=== PATIENT | male | born 1995 | race Caucasian/White ===

== ENCOUNTER 2020-03-10 20:06 | Emergency (ER) | payer OTHER ==
[2020-03-10 20:16] VITALS: BP 129/86; PULSE 77; TEMP 97.7; BMI 28.5
[2020-03-10] MEDS ORDERED: ACETAMINOPHEN 500 MG TABLET (FP) PO ONE (20:50)
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
[2020-03-10] MEDS ORDERED: ACETAMINOPHEN 325 MG TABLET (FP) ONE (21:08)
--- OUTSIDE RECORDS SUMMARY | 2020-03-10 21:32 | XMS ---
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 [facility] [Mass/volume] in styleCode="Bold"> Giovanny hs Serum or Plasma Bilirubin Total Medical </content>0.8 Center MG/DL<content styleCode="Italic s"> (0.2-1.3 MG/DL)</content> Alanine 7-50 <content [facility] aminotransferase styleCode="Bold"> Giovanny hs [Enzymatic Alanine Medical activity/volume] Aminotransferase Center in Serum or Plasma (ALT) </content>23 IU/L<content styleCode="Italic s"> (7-50 IU/L)</content> Alkaline 38-126 <content [facility] phosphatase styleCode="Bold"> Jermaine [Enzymatic Alkaline Medical activity/volume] Phosphatase (ALP) Cente r in Serum or Plasma </content>73 IU/L<content styleCode="Italic s"> (38-126 IU/L)</content> Albumin 3.5-5.0 Below low <content [facility] [Mass/volume] in normal styleCode="Bold"> Giovanny hs Serum or Plasma Albumin Medical </content>3.3 Center G/DL L<content styleCode="Italic s"> (3.5-5.0 G/DL)</content> ID Date Data Source HematologyRou.[id number] 11/13/2019 05:45:00 AM EDT [facility] 0400 Name Value Range Interpretation Description Data Sup porting Code Source(s) Document(s ) Erythrocytes 4.4-5.9 <content [facility] [#/volume] in styleCode="Bold Jermaine Blood by ">Red Blood Medical Automated count Cell Count Center </content>4.67 MCUMM<content styleCode="Ital ics"> (4.4-5.9 MCUMM)</content > Leukocytes 4.4-11.0 <content [facility] [#/volume] in styleCode="Bold Jermaine Blood by ">White Blood Medical Automated count Cell Count Center </content>9.05 KCUMM<content styleCode="Ital ics"> (4.4-11.0 KCUMM)</content > Hematocrit 41.0-53. <content [facility] [Volume 0 styleCode="Bold Jermaine Fraction] of ">Hematocrit Medical Blood by </content>42.1 Center Automated count %<content styleCode="Ital ics"> (41.0-53.0 %)</content> Erythrocyte mean 80.0-100 <content [facility] corpuscular .0 styleCode="Bold Jermaine volume [Entitic ">Mean Medical volume] by Corpuscular Center Automated count Volume </content>90.1 FL<content styleCode="Ital ics"> (80.0-100.0 FL)</content> Hemoglobin 13.5-17. <content [facility] [Mass/volume] in 5 styleCode="Bold Jermaine Blood ">Hemoglobin Medical </content>13.9 Center G/DL<content styleCode="Ital ics"> (13.5-17.5 G/DL)</content> Erythrocyte mean 26.0-34. <content [facility] corpuscular 0 styleCode="Bold Jermaine hemoglobin ">Mean Medical [Entitic mass] Corposcular Center by Automated Hemoglobin count </content>29.8 PG<content styleCode="Ital ics"> (26.0-34.0 PG)</content> Erythrocyte mean 32.0-37. <content [facility] corpuscular 0 styleCode="Bold Jermaine hemoglobin ">Mean Corpus. Medical concentration Hgb Center [Mass/volume] by Concentration Automated count (MCHC) </content>33.0 G/DL<content styleCode="Ital ics"> (32.0-37.0 G/DL)</content> Erythrocyte 11.5-14. <content [facility] distribution 5 styleCode="Bold Jermaine width [Ratio] by ">Red Cell Medical Automated count Distribution Center Width </content>11.5 %<content styleCode="Ital ics"> (11.5-14.5 %)</content> Platelets 130-400 <content [facility] [#/volume] in styleCode="Bold Jermaine Blood by ">Platelet Medical Automated count Count Center </content>291 KCUMM<content styleCode="Ital ics"> (130-400 KCUMM)</content > Platelet mean 8.0-11.0 <content [facility] volume [Entitic styleCode="Bold Jermaine volume] in Blood ">Mean Platelet Medical by Automated Volume Center count </content>9.7 FL<content styleCode="Ital ics"> (8.0-11.0 FL)</content> Lymphocytes 24.0-44. Below low normal <content [facility] [#/volume] in 0 styleCode="Bold Jermaine Blood by ">Lymphocyte Medical Automated count </content>12.8 Center % L<content styleCode="Ital ics"> (24.0-44.0 %)</content> Neutrophils 36-66 Above high <content [facility] [#/volume] in normal styleCode="Bold Jermaine Blood by ">Neutrophil Medical Automated count </content>74.6 Center % H<content styleCode="Ital ics"> (36-66 %)</content> UNK 1.6-7.3 <content [facility] styleCode="Bold Jermaine ">Neutrophil Medical Count Center </content>6.74 KCUMM<content styleCode="Ital ics"> (1.6-7.3 KCUMM)</content > UNK 0.2-0.9 Above high <content [facility] normal styleCode="Bold Jermaine ">Monocyte Medical Count Center </content>1.00 KCUMM H<content styleCode="Ital ics"> (0.2-0.9 KCUMM)</content > UNK 1.0-4.8 <content [facility] styleCode="Bold Jermaine ">Lymphocyte Medical Count Center </content>1.16 KCUMM<content styleCode="Ital ics"> (1.0-4.8 KCUMM)</content > Monocytes 3.0-10.0 Above high <content [facility] [#/volume] in normal styleCode="Bold Jermaine Blood by ">Monocyte Medical Automated count </content>11.0 Center % H<content styleCode="Ital ics"> (3.0-10.0 %)</content> UNK 0.0-0.6 <content [facility] styleCode="Bold Jermaine ">Eosinophil Medical Count Center </content>0.09 KCUMM<content styleCode="Ital ics"> (0.0-0.6 KCUMM)</content > Eosinophils 0-5.0 <content [facility] [#/volume] in styleCode="Bold Jermaine Blood by ">Eosinophil Medical Automated count </content>1.0 Center %<content styleCode="Ital ics"> (0-5.0 %)</content> Basophils 0.0-1.0 <content [facility] [#/volume] in styleCode="Bold Jermaine Blood by ">Basophil Medical Automated count </content>0.2 Center %<content styleCode="Ital ics"> (0.0-1.0 %)</content> UNK 0.0-0.3 <content [facility] styleCode="Bold Jermaine ">Basophil Medical Count Center </content>0.02 KCUMM<content styleCode="Ital ics"> (0.0-0.3 KCUMM)</content > UNK 0 <content [facility] styleCode="Bold Jermaine ">Nucleated Red Medical Blood Cell Center </content>0.0 /100<content styleCode="Ital ics"> (0 /100)</content> UNK 0.0 <content [facility] styleCode="Bold Jermaine ">Nucleated Red Medical Blood Cell Center Count </content>0.00 KCUMM<content styleCode="Ital ics"> (0.0 KCUMM)</content > UNK 0-0.1 <content [facility] styleCode="Bold Jermaine ">Immature Medical Granulocyte Center Count </content>0.04 KCUMM<content styleCode="Ital ics"> (0-0.1 KCUMM)</content > UNK < 1 <content [facility] styleCode="Bold Jermaine ">Immature Medical Granulocyte Center Ratio </content>0.4 %<content styleCode="Ital ics"> (< 1 %)</content> ID Date Data Source GFR(Creatinine).[id number] 11/13/2019 05:45:00 AM EDT [facility] 0-0400 Name Value Range Interpretation Code Description Data Noris rce(s) Supporting Document(s ) UNK > 60 <content [facility] styleCode="Bold"> Medical Cent er EGFR </content>86 GFR<content styleCode="Italic s"> (> 60 GFR)</content> ID Date Data Source CHMROUTINECCDA.[id number] 11/13/2019 05:45:00 AM EDT [facility] -0400 Name Value Range Interpretation Description Data Sup porting Code Source(s) Document(s ) UNK >= 1.0 <content [facility] styleCode="Isis Jermaine d">AG Ratio Medical </content>1.1 Center <content styleCode="Suy[place] lics"> (>= 1.0 )</content> Magnesium 1.6-2.3 <content [facility] [Mass/volume] styleCode="Isis Jermaine in Serum or d">Magnesium Medical Plasma </content>2.2 Center MG/DL<content styleCode="Suy[place] lics"> (1.6-2.3 MG/DL)</conten t> UNK 2.3-3.5 <content [facility] styleCode="Isis Jermaine d">Globulin Medical </content>3.1 Center G/DL<content styleCode="[place]uy[place] lics"> (2.3-3.5 G/DL)</content > Protein 6.3-8.2 <content [facility] [Mass/volume] styleCode="Isis Jermaine in Serum or d">Total Medical Plasma Protein Center </content>6.4 G/DL<content styleCode="Suy[place] lics"> (6.3-8.2 G/DL)</content > Phosphate 2.5-4.5 <content [facility] [Mass/volume] styleCode="Isis Jermaine in Serum or d">Phosphorus Medical Plasma </content>3.7 Center MG/DL<content styleCode="Suy[place] lics"> (2.5-4.5 MG/DL)</conten t> ID Date Data Source [facility][id number] 11/13/2019 05:45:00 AM EDT [facility] Name Value Range Interpretation Description Data Sup porting Code Source(s) Document(s ) Potassium 3.5-5.3 <content [facility] [Moles/volume] in styleCode="Bold"> [facility] Serum or Plasma Potassium Medical </content>4.4 Center MEQ/L<content styleCode="Italic s"> (3.5-5.3 MEQ/L)</content> Sodium 137-145 Below low <content [facility] [Moles/volume] in normal styleCode="Bold"> [facility] Serum or Plasma Sodium Medical </content>136 Center MEQ/L L<content styleCode="Italic s"> (137-145 MEQ/L)</content> Chloride 98-107 <content [facility] [Moles/volume] in styleCode="Bold"> [facility] Serum or Plasma Chloride Medical </content>100 Center MEQ/L<content styleCode="Italic s"> (98-107 MEQ/L)</content> Creatinine 0.5-1.3 <content [facility] [Mass/volume] in styleCode="Bold"> Giovanny hs Serum or Plasma Creatinine Medical </content>1.1 Center MG/DL<content styleCode="Italic s"> (0.5-1.3 MG/DL)</content> UNK 9-20 <content [facility] styleCode="Bold"> Jermaine BUN </content>15 Medical MG/DL<content Center styleCode="Italic s"> (9-20 MG/DL)</content> Glucose 74-106 <content [facility] [Mass/volume] in styleCode="Bold"> Giovanny hs Serum or Plasma Glucose Medical </content>91 Center MG/DL<content styleCode="Italic s"> (74-106 MG/DL)</content> Carbon dioxide, 22-30 <content [facility] total styleCode="Bold"> Jermaine [Moles/volume] in Carbon Dioxide Medical Serum or Plasma </content>25 Center MEQ/L<content styleCode="Italic s"> (22-30 MEQ/L)</content> Aspartate 17-59 <content [facility] aminotransferase styleCode="Bold"> Giovanny hs [Enzymatic Aspartate Medical activity/volume] Aminotransferase Center in Serum or Plasma (AST) </content>25 IU/L<content styleCode="Italic s"> (17-59 IU/L)</content> Calcium 8.4-10. <content [facility] [Mass/volume] in 2 styleCode="Bold"> Giovanny hs Serum or Plasma Calcium Medical </content>8.6 Center MG/DL<content styleCode="Italic s"> (8.4-10.2 MG/DL)</content> UNK > 60 <content [facility] styleCode="Bold"> Jermaine EGFR </content>86 Medical GFR<content Center styleCode="Italic s"> (> 60 GFR)</content> Alanine 7-50 <content [facility] aminotransferase styleCode="Bold"> Giovanny hs [Enzymatic Alanine Medical activity/volume] Aminotransferase Center in Serum or Plasma (ALT) </content>23 IU/L<content styleCode="Italic s"> (7-50 IU/L)</content> Alkaline 38-126 <content [facility] phosphatase styleCode="Bold"> Jermaine [Enzymatic Alkaline Medical activity/volume] Phosphatase (ALP) Cente r in Serum or Plasma </content>73 IU/L<content styleCode="Italic s"> (38-126 IU/L)</content> Bilirubin.total 0.2-1.3 <content [facility] [Mass/volume] in styleCode="Bold"> Giovanny hs Serum or Plasma Bilirubin Total Medical </content>0.8 Center MG/DL<content styleCode="Italic s"> (0.2-1.3 MG/DL)</content> Albumin 3.5-5.0 Below low <content [facility] [Mass/volume] in normal styleCode="Bold"> Giovanny hs Serum or Plasma Albumin Medical </content>3.3 Center G/DL L<content styleCode="Italic s"> (3.5-5.0 G/DL)</content> ID Date Data Source Liver 11/12/2019 05:55:00 AM EDT [facility] Profile.[id number] Name Value Range Interpretation Description Data Sup porting Code Source(s) Document(s ) Aspartate 17-59 <content [facility] aminotransferase styleCode="Bold"> Giovanny hs [Enzymatic Aspartate Medical activity/volume] Aminotransferase Center in Serum or Plasma (AST) </content>28 IU/L<content styleCode="Italic s"> (17-59 IU/L)</content> Alanine 7-50 <content [facility] aminotransferase styleCode="Bold"> Giovanny hs [Enzymatic Alanine Medical activity/volume] Aminotransferase Center in Serum or Plasma (ALT) </content>28 IU/L<content styleCode="Italic s"> (7-50 IU/L)</content> Bilirubin.total 0.2-1.3 Above high <content [facility] [Mass/volume] in normal styleCode="Bold"> Giovanny hs Serum or Plasma Bilirubin Total Medical </content>1.4 Center MG/DL H<content styleCode="Italic s"> (0.2-1.3 MG/DL)</content> Alkaline 38-126 <content [facility] phosphatase styleCode="Bold"> [facility] [Enzymatic Alkaline Medical activity/volume] Phosphatase (ALP) Cente r in Serum or Plasma </content>70 IU/L<content styleCode="Italic s"> (38-126 IU/L)</content> Albumin 3.5-5.0 <content [facility] [Mass/volume] in styleCode="Bold"> Giovanny hs Serum or Plasma Albumin Medical </content>3.5 Center G/DL<content styleCode="Italic s"> (3.5-5.0 G/DL)</content> ID Date Data Source HematologyRou.[id number] 11/12/2019 05:55:00 AM EDT [facility] 0400 Name Value Range Interpretation Description Data Sup porting Code Source(s) Document(s ) Leukocytes 4.4-11.0 Above high <content [facility] [#/volume] in normal styleCode="Bold Jermaine Blood by ">White Blood Medical Automated count Cell Count Center </content>11.96 KCUMM H<content styleCode="Ital ics"> (4.4-11.0 KCUMM)</content > Erythrocytes 4.4-5.9 <content [facility] [#/volume] in styleCode="Bold Jermaine Blood by ">Red Blood Medical Automated count Cell Count Center </content>4.80 MCUMM<content styleCode="Ital ics"> (4.4-5.9 MCUMM)</content > Hemoglobin 13.5-17. <content [facility] [Mass/volume] in 5 styleCode="Bold Jermaine Blood ">Hemoglobin Medical </content>14.4 Center G/DL<content styleCode="Ital ics"> (13.5-17.5 G/DL)</content> Erythrocyte mean 80.0-100 <content [facility] corpuscular .0 styleCode="Bold [facility] volume [Entitic ">Mean Medical volume] by Corpuscular Center Automated count Volume </content>91.0 FL<content styleCode="Ital ics"> (80.0-100.0 FL)</content> Hematocrit 41.0-53. <content [facility] [Volume 0 styleCode="Bold Jermaine Fraction] of ">Hematocrit Medical Blood by </content>43.7 Center Automated count %<content styleCode="Ital ics"> (41.0-53.0 %)</content> Erythrocyte mean 26.0-34. <content [facility] corpuscular 0 styleCode="Bold Jermaine hemoglobin ">Mean Medical [Entitic mass] Corposcular Center by Automated Hemoglobin count </content>30.0 PG<content styleCode="Ital ics"> (26.0-34.0 PG)</content> Erythrocyte 11.5-14. Below low normal <content [facility] distribution 5 styleCode="Bold Jermaine width [Ratio] by ">Red Cell Medical Automated count Distribution Center Width </content>11.4 % L<content styleCode="Ital ics"> (11.5-14.5 %)</content> Erythrocyte mean 32.0-37. <content [facility] corpuscular 0 styleCode="Bold Jermaine hemoglobin ">Mean Corpus. Medical concentration Hgb Center [Mass/volume] by Concentration Automated count (MCHC) </content>33.0 G/DL<content styleCode="Ital ics"> (32.0-37.0 G/DL)</content> Platelets 130-400 <content [facility] [#/volume] in styleCode="Bold Jermaine Blood by ">Platelet Medical Automated count Count Center </content>270 KCUMM<content styleCode="Ital ics"> (130-400 KCUMM)</content > Neutrophils 36-66 Above high <content [facility] [#/volume] in normal styleCode="Bold Jermaine Blood by ">Neutrophil Medical Automated count </content>80.7 Center % H<content styleCode="Ital ics"> (36-66 %)</content> Platelet mean 8.0-11.0 <content [facility] volume [Entitic styleCode="Bold Jermaine volume] in Blood ">Mean Platelet Medical by Automated Volume Center count </content>9.7 FL<content styleCode="Ital ics"> (8.0-11.0 FL)</content> UNK 1.6-7.3 Above high <content [facility] normal styleCode="Bold Jermaine ">Neutrophil Medical Count Center </content>9.65 KCUMM H<content styleCode="Ital ics"> (1.6-7.3 KCUMM)</content > Lymphocytes 24.0-44. Below low normal <content [facility] [#/volume] in 0 styleCode="Bold Jermaine Blood by ">Lymphocyte Medical Automated count </content>7.9 % Center L<content styleCode="Ital ics"> (24.0-44.0 %)</content> UNK 1.0-4.8 Below low normal <content [facility] styleCode="Bold Jermaine ">Lymphocyte Medical Count Center </content>0.95 KCUMM L<content styleCode="Ital ics"> (1.0-4.8 KCUMM)</content > Monocytes 3.0-10.0 Above high <content [facility] [#/volume] in normal styleCode="Bold Jermaine Blood by ">Monocyte Medical Automated count </content>10.4 Center % H<content styleCode="Ital ics"> (3.0-10.0 %)</content> UNK 0.2-0.9 Above high <content [facility] normal styleCode="Bold Jermaine ">Monocyte Medical Count Center </content>1.24 KCUMM H<content styleCode="Ital ics"> (0.2-0.9 KCUMM)</content > Basophils 0.0-1.0 <content [facility] [#/volume] in styleCode="Bold Jermaine Blood by ">Basophil Medical Automated count </content>0.2 Center %<content styleCode="Ital ics"> (0.0-1.0 %)</content> Eosinophils 0-5.0 <content [facility] [#/volume] in styleCode="Bold Jermaine Blood by ">Eosinophil Medical Automated count </content>0.3 Center %<content styleCode="Ital ics"> (0-5.0 %)</content> UNK 0.0-0.6 <content [facility] styleCode="Bold Jermaine ">Eosinophil Medical Count Center </content>0.04 KCUMM<content styleCode="Ital ics"> (0.0-0.6 KCUMM)</content > UNK 0.0 <content [facility] styleCode="Bold Jermaine ">Nucleated Red Medical Blood Cell Center Count </content>0.00 KCUMM<content styleCode="Ital ics"> (0.0 KCUMM)</content > UNK 0 <content [facility] styleCode="Bold Jermaine ">Nucleated Red Medical Blood Cell Center </content>0.0 /100<content styleCode="Ital ics"> (0 /100)</content> UNK 0.0-0.3 <content [facility] styleCode="Bold Jermaine ">Basophil Medical Count Center </content>0.02 KCUMM<content styleCode="Ital ics"> (0.0-0.3 KCUMM)</content > UNK < 1 <content [facility] styleCode="Bold Jermaine ">Immature Medical Granulocyte Center Ratio </content>0.5 %<content styleCode="Ital ics"> (< 1 %)</content> UNK 0-0.1 <content [facility] styleCode="Bold Jermaine ">Immature Medical Granulocyte Center Count </content>0.06 KCUMM<content styleCode="Ital ics"> (0-0.1 KCUMM)</content > ID Date Data Source GFR(Creatinine).[id number] 11/12/2019 05:55:00 AM EDT [facility] 0-0400 Name Value Range Interpretation Code Description Data Noris rce(s) Supporting Document(s ) UNK > 60 <content [facility] styleCode="Bold"> Medical Cent er EGFR </content>78 GFR<content styleCode="Italic s"> (> 60 GFR)</content> ID Date Data Source CHMROUTINECCDA.[id number] 11/12/2019 05:55:00 AM EDT [facility] -0400 Name Value Range Interpretation Description Data Sup porting Code Source(s) Document(s ) UNK >= 1.0 <content [facility] styleCode="Isis Jermaine d">AG Ratio Medical </content>1.2 Center <content styleCode="Suy[place] lics"> (>= 1.0 )</content> Phosphate 2.5-4.5 <content [facility] [Mass/volume] styleCode="Isis Jermaine in Serum or d">Phosphorus Medical Plasma </content>3.7 Center MG/DL<content styleCode="[place]uy[place] lics"> (2.5-4.5 MG/DL)</conten t> UNK 2.3-3.5 <content [facility] styleCode="Isis Jermaine d">Globulin Medical </content>3.0 Center G/DL<content styleCode="[place]uy[place] lics"> (2.3-3.5 G/DL)</content > Protein 6.3-8.2 <content [facility] [Mass/volume] styleCode="Isis Jermaine in Serum or d">Total Medical Plasma Protein Center </content>6.5 G/DL<content styleCode="[place]uy[place] lics"> (6.3-8.2 G/DL)</content > Magnesium 1.6-2.3 <content [facility] [Mass/volume] styleCode="Isis Jermaine in Serum or d">Magnesium Medical Plasma </content>2.0 Center MG/DL<content styleCode="Suy[place] lics"> (1.6-2.3 MG/DL)</conten t> ID Date Data Source [facility][id number] 11/12/2019 05:55:00 AM EDT [facility] Name Value Range Interpretation Description Data Sup porting Code Source(s) Document(s ) Sodium 137-145 Below low <content [facility] [Moles/volume] in normal styleCode="Bold"> [facility] Serum or Plasma Sodium Medical </content>135 Center MEQ/L L<content styleCode="Italic s"> (137-145 MEQ/L)</content> Chloride 98-107 <content [facility] [Moles/volume] in styleCode="Bold"> [facility] Serum or Plasma Chloride Medical </content>100 Center MEQ/L<content styleCode="Italic s"> (98-107 MEQ/L)</content> Potassium 3.5-5.3 <content [facility] [Moles/volume] in styleCode="Bold"> [facility] Serum or Plasma Potassium Medical </content>4.2 Center MEQ/L<content styleCode="Italic s"> (3.5-5.3 MEQ/L)</content> Carbon dioxide, 22-30 <content [facility] total styleCode="Bold"> Jermaine [Moles/volume] in Carbon Dioxide Medical Serum or Plasma </content>27 Center MEQ/L<content styleCode="Italic s"> (22-30 MEQ/L)</content> Calcium 8.4-10. <content [facility] [Mass/volume] in 2 styleCode="Bold"> [facility] Serum or Plasma Calcium Medical </content>8.5 Center MG/DL<content styleCode="Italic s"> (8.4-10.2 MG/DL)</content> UNK 9-20 <content [facility] styleCode="Bold"> Jermaine BUN </content>15 Medical MG/DL<content Center styleCode="Italic s"> (9-20 MG/DL)</content> Glucose 74-106 Above high <content [facility] [Mass/volume] in normal styleCode="Bold"> Giovanny hs Serum or Plasma Glucose Medical </content>112 Center MG/DL H<content styleCode="Italic s"> (74-106 MG/DL)</content> Creatinine 0.5-1.3 <content [facility] [Mass/volume] in styleCode="Bold"> Giovanny hs Serum or Plasma Creatinine Medical </content>1.2 Center MG/DL<content styleCode="Italic s"> (0.5-1.3 MG/DL)</content> UNK > 60 <content [facility] styleCode="Bold"> Jermaine EGFR </content>78 Medical GFR<content Center styleCode="Italic s"> (> 60 GFR)</content> Alanine 7-50 <content [facility] aminotransferase styleCode="Bold"> [facility] [Enzymatic Alanine Medical activity/volume] Aminotransferase Center in Serum or Plasma (ALT) </content>28 IU/L<content styleCode="Italic s"> (7-50 IU/L)</content> Alkaline 38-126 <content [facility] phosphatase styleCode="Bold"> Jermaine [Enzymatic Alkaline Medical activity/volume] Phosphatase (ALP) Cente r in Serum or Plasma </content>70 IU/L<content styleCode="Italic s"> (38-126 IU/L)</content> Aspartate 17-59 <content [facility] aminotransferase styleCode="Bold"> [facility]anny hs [Enzymatic Aspartate Medical activity/volume] Aminotransferase Center in Serum or Plasma (AST) </content>28 IU/L<content styleCode="Italic s"> (17-59 IU/L)</content> Bilirubin.total 0.2-1.3 Above high <content [facility] [Mass/volume] in normal styleCode="Bold"> Giovanny hs Serum or Plasma Bilirubin Total Medical </content>1.4 Center MG/DL H<content styleCode="Italic s"> (0.2-1.3 MG/DL)</content> Albumin 3.5-5.0 <content [facility] [Mass/volume] in styleCode="Bold"> Giovanny hs Serum or Plasma Albumin Medical </content>3.5 Center G/DL<content styleCode="Italic s"> (3.5-5.0 G/DL)</content> ID Date Data Source Coagulation 11/11/2019 04:45:00 PM [facility] Rout.[id number] EDT Name Value Range Interpretation Description Data Sup porting Code Source(s) Document(s ) INR in 0.80-1.2 Above high normal <content [facility] Platelet poor 0 styleCode="Bold" [facility] plasma by >INR Medical Coagulation </content>1.26 # Center assay H<content styleCode="Itali cs"> (0.80-1.20 #)</content> UNK 9.0-13.0 Above high normal <content [facility] styleCode="Bold" Jermaine >Protime Medical </content>14.0 Center SEC H<content styleCode="Itali cs"> (9.0-13.0 SEC)</content> aPTT in 25.1-36. <content [facility] Platelet poor 5 styleCode="Bold" [facility] plasma by >Partial Medical Coagulation Thromboplastin Center assay Time </content>31.3 SEC<content styleCode="Itali cs"> (25.1-36.5 SEC)</content> ID Date Data Source [facility].[id number] 11/11/2019 04:45:00 PM EDT [facility] Name Value Range Interpretation Code Description Data Noris rce(s) Supporting Document(s ) UNK NEGATIVE <content [facility] styleCode="Bold" Medical Cente r >Antibody Screen </content>NEGATI VE <content styleCode="Itali cs"> (NEGATIVE )</content> UNK <content [facility] styleCode="Bold" Medical Cente r >RH Type </content>POSITI VE (Reference Range: not available)
UNK <content [facility] styleCode="Bold" [facility] r >Blood Type </content>GROUP O (Reference Range: not available)
ID Date Data Source Urinalysis.[id number] 11/11/2019 01:30:00 PM EDT [facility] 0 Name Value Range Interpretation Description Data Sup porting Code Source(s) Document(s ) Color of Urine YELLOW <content [facility] styleCode="[facility] d">Color, Medical Urine Center </content>YELL OW <content styleCode="[place]"> (YELLOW )</content> UNK CLEAR <content [facility] styleCode="[facility] d">Urine Medical Clarity Center </content>GRACE R <content styleCode="[place]"> (CLEAR )</content> Glucose NEGATIVE <content Saint [Mass/volume] styleCode="Isis Jermaine in Urine by d">Urine Medical Test strip Glucose Center </content>NEGA TIVE MG/DL<content styleCode="[place]"> (NEGATIVE MG/DL)</conten t> Specific 1.015-1.02 <content Saint gravity of 5 styleCode="Isis Alonsos Urine by Test d">Urine Medical strip Specific Center [place] </content>1.02 0 <content styleCode="[place]"> (1.015-1.025 )</content> UNK NEGATIVE <content Saint styleCode="Isis Jermaine d">Urine Medical Bilirubin Center </content>NEGA TIVE <content styleCode="[place]"> (NEGATIVE )</content> Ketones NEGATIVE <content [facility] [Mass/volume] styleCode="Isis Jermaine in Urine by d">Urine Medical Test strip Ketone Center </content>NEGA TIVE MG/DL<content styleCode="[place]"> (NEGATIVE MG/DL)</conten t> pH of Urine by 4.5-8.0 <content Saint Test strip styleCode="Isis Jermaine d">Urine pH Medical </content>6.5 Center <content styleCode="[place]"> (4.5-8.0 )</content> Hemoglobin NEGATIVE <content [facility] [Presence] in styleCode="Isis Alonsos Urine by Test d">Urine Blood Medical strip </content>TRAC Center E <content styleCode="[place]"> (NEGATIVE )</content> Protein NEGATIVE <content [facility] [Mass/volume] styleCode="Isis Alonsos in Urine by d">Urine Medical Test strip Protein Center </content>TRAC E MG/DL<content styleCode="[place]"> (NEGATIVE MG/DL)</conten t> Urobilinogen 0.2-1.0 <content [facility] [Units/volume] styleCode="Isis Alonsos in Urine by d">Urine Medical Test strip Urobilinogen Center </content>0.2 MG/DL<content styleCode="[place]"> (0.2-1.0 MG/DL)</conten t> Leukocyte NEGATIVE <content Saint esterase styleCode="Isis Dean [Presence] in d">Urine Medical Urine by Test Leukocyte Center strip </content>NEGA TIVE <content styleCode="[place]"> (NEGATIVE )</content> Nitrite NEGATIVE <content [facility] [Presence] in styleCode="Isis Dean Urine by Test d">Urine Medical strip Nitrite Center </content>POSI TIVE <content styleCode="[place]"> (NEGATIVE )</content> UNK 0-3 <content Saint styleCode="Isis Jermaine d">Urine White Medical Blood Cell Center </content>5 - 10 HPF<content styleCode="[place]"> (0-3 HPF)</content> UNK 0-3 <content Saint styleCode="Isis Jermaine d">Urine Red Medical Blood Cell Center </content>0-3 HPF<content styleCode="[place]"> (0-3 HPF)</content> UNK NEGATIVE <content Saint styleCode="Isis Jermaine d">Urine Medical Bacteria Center </content>FEW HPF<content styleCode="[place]"> (NEGATIVE HPF)</content> ID Date Data Source Microbiology.[id number] 11/11/2019 01:30:00 PM EDT [facility] 400 Name Value Range Interpretation Code Description Data Noris rce(s) Supporting Document(s ) UNK <item><content [facility] styleCode="Bold"> [facility] [place] er Culture Status </content>
<t able><tbody><tr>< td>Specimen Number:</td><td>[id number]</td></tr ><tr><td>Sample Collection Date/Time: </td><td> 0 1:30 PM</td></tr><tr>< td>Specimen Source:</td><td>U RINE</td></tr><tr ><td>Culture Status:</td><td>F inal </td></tr><tr><td >Culture Report:</td><td>N O GROWTH </td></tr><tr><td >Urine Culture:</td><td> Collection Plate Date: 11/11/2019 13:34 </td></tr></tbody ></table></item> UNK <item><content [facility] styleCode="Bold"> Medical [place] er Culture Report </content>
<t able><tbody><tr>< td>Specimen Number:</td><td>[id number]</td></tr ><tr><td>Sample Collection Date/Time: </td><td> 0 1:30 PM</td></tr><tr>< td>Specimen Source:</td><td>U RINE</td></tr><tr ><td>Urine Culture:</td><td> Collection Plate Date: 11/11/2019 13:34 </td></tr><tr><td >Culture Status:</td><td>F inal </td></tr><tr><td >Culture Report:</td><td>N O GROWTH </td></tr></tbody ></table></item> ID Date Data Source Liver 11/11/2019 01:00:00 PM EDT [facility] Profile.[id number] Name Value Range Interpretation Description Data Sup porting Code Source(s) Document(s ) Aspartate 17-59 <content Saint aminotransferase styleCode="Bold"> Giovanny hs [Enzymatic Aspartate Medical activity/volume] Aminotransferase Center in Serum or Plasma (AST) </content>36 IU/L<content styleCode="Italic s"> (17-59 IU/L)</content> Bilirubin.total 0.2-1.3 <content Saint [Mass/volume] in styleCode="Bold"> Giovanny hs Serum or Plasma Bilirubin Total Medical </content>1.3 Center MG/DL<content styleCode="Italic s"> (0.2-1.3 MG/DL)</content> Alanine 7-50 <content [facility] aminotransferase styleCode="Bold"> Giovanny hs [Enzymatic Alanine Medical activity/volume] Aminotransferase Center in Serum or Plasma (ALT) </content>30 IU/L<content styleCode="Italic s"> (7-50 IU/L)</content> Alkaline 38-126 <content [facility] phosphatase styleCode="Bold"> Jermaine [Enzymatic Alkaline Medical activity/volume] Phosphatase (ALP) Cente r in Serum or Plasma </content>78 IU/L<content styleCode="Italic s"> (38-126 IU/L)</content> UNK 0.0-0.3 <content Saint styleCode="Bold"> Jermaine Bilirubin, Direct Medical </content>< 0.2 Center MG/DL<content styleCode="Italic s"> (0.0-0.3 MG/DL)</content> Albumin 3.5-5.0 <content [facility] [Mass/volume] in styleCode="Bold"> Giovanny hs Serum or Plasma Albumin Medical </content>4.2 Center G/DL<content styleCode="Italic s"> (3.5-5.0 G/DL)</content> ID Date Data Source HematologyRou.[id number] 11/11/2019 01:00:00 PM EDT [facility] 0400 Name Value Range Interpretation Description Data Sup porting Code Source(s) Document(s ) Leukocytes 4.4-11.0 Above high <content Saint [#/volume] in normal styleCode="Bold Jermaine Blood by ">White Blood Medical Automated count Cell Count Center </content>12.47 KCUMM H<content styleCode="Ital ics"> (4.4-11.0 KCUMM)</content > Hemoglobin 13.5-17. <content Saint [Mass/volume] in 5 styleCode="Bold Jermaine Blood ">Hemoglobin Medical </content>15.7 Center G/DL<content styleCode="Ital ics"> (13.5-17.5 G/DL)</content> Erythrocytes 4.4-5.9 <content Saint [#/volume] in styleCode="Bold Jermaine Blood by ">Red Blood Medical Automated count Cell Count Center </content>5.18 MCUMM<content styleCode="Ital ics"> (4.4-5.9 MCUMM)</content > Hematocrit 41.0-53. <content Saint [Volume 0 styleCode="Bold [facility] Fraction] of ">Hematocrit Medical Blood by </content>47.0 Center Automated count %<content styleCode="Ital ics"> (41.0-53.0 %)</content> Erythrocyte mean 26.0-34. <content Saint corpuscular 0 styleCode="Bold Jermaine hemoglobin ">Mean Medical [Entitic mass] Corposcular Center by Automated Hemoglobin count </content>30.3 PG<content styleCode="Ital ics"> (26.0-34.0 PG)</content> Erythrocyte mean 32.0-37. <content [facility] corpuscular 0 styleCode="Bold Jermaine hemoglobin ">Mean Corpus. Medical concentration Hgb Center [Mass/volume] by Concentration Automated count (MCHC) </content>33.4 G/DL<content styleCode="Ital ics"> (32.0-37.0 G/DL)</content> Erythrocyte mean 80.0-100 <content Saint corpuscular .0 styleCode="Bold Jermaine volume [Entitic ">Mean Medical volume] by Corpuscular Center Automated count Volume </content>90.7 FL<content styleCode="Ital ics"> (80.0-100.0 FL)</content> Erythrocyte 11.5-14. <content Saint distribution 5 styleCode="Bold Jermaine width [Ratio] by ">Red Cell Medical Automated count Distribution Center Width </content>11.5 %<content styleCode="Ital ics"> (11.5-14.5 %)</content> Platelets 130-400 <content Saint [#/volume] in styleCode="Bold Jermaine Blood by ">Platelet Medical Automated count Count Center </content>299 KCUMM<content styleCode="Ital ics"> (130-400 KCUMM)</content > UNK 0.0 <content Saint styleCode="Bold Jermaine ">Nucleated Red Medical Blood Cell Center Count </content>0.00 KCUMM<content styleCode="Ital ics"> (0.0 KCUMM)</content > Platelet mean 8.0-11.0 <content Saint volume [Entitic styleCode="Bold Jermaine volume] in Blood ">Mean Platelet Medical by Automated Volume Center count </content>9.7 FL<content styleCode="Ital ics"> (8.0-11.0 FL)</content> UNK 0 <content Saint styleCode="Bold Jermaine ">Nucleated Red Medical Blood Cell Center </content>0.0 /100<content styleCode="Ital ics"> (0 /100)</content> ID Date Data Source GFR(Creatinine).[id number] 11/11/2019 01:00:00 PM EDT [facility] 0-0400 Name Value Range Interpretation Code Description Data Noris rce(s) Supporting Document(s ) UNK > 60 <content [facility] styleCode="Bold"> Medical Cent er EGFR </content>86 GFR<content styleCode="Italic s"> (> 60 GFR)</content> ID Date Data Source CHMROUTINECCDA.[id number] 11/11/2019 01:00:00 PM EDT [facility] -0400 Name Value Range Interpretation Description Data Sup porting Code Source(s) Document(s ) Lipase 23-300 <content [facility] [Enzymatic styleCode="Bold Medical activity/vo ">Lipase Center lume] in </content>76 Serum or IU/L<content Plasma styleCode="Ital ics"> (23-300 IU/L)</content> UNK 30-110 <content [facility] styleCode="Bold Medical ">Amylase Center </content>47 IU/L<content styleCode="Ital ics"> (30-110 IU/L)</content> ID Date Data Source [facility][id number] 11/11/2019 01:00:00 PM EDT [facility] Name Value Range Interpretation Description Data Sup porting Code Source(s) Document(s ) Sodium 137-145 Below low <content Saint [Moles/volume] in normal styleCode="Bold"> [facility] Serum or Plasma Sodium Medical </content>133 Center MEQ/L L<content styleCode="Italic s"> (137-145 MEQ/L)</content> Carbon dioxide, 22-30 <content Saint total styleCode="Bold"> Jermaine [Moles/volume] in Carbon Dioxide Medical Serum or Plasma </content>30 Center MEQ/L<content styleCode="Italic s"> (22-30 MEQ/L)</content> Chloride 98-107 Below low <content Saint [Moles/volume] in normal styleCode="Bold"> [facility] Serum or Plasma Chloride Medical </content>95 Center MEQ/L L<content styleCode="Italic s"> (98-107 MEQ/L)</content> Potassium 3.5-5.3 <content Saint [Moles/volume] in styleCode="Bold"> [facility] Serum or Plasma Potassium Medical </content>4.6 Center MEQ/L<content styleCode="Italic s"> (3.5-5.3 MEQ/L)</content> Creatinine 0.5-1.3 <content Saint [Mass/volume] in styleCode="Bold"> Giovanny hs Serum or Plasma Creatinine Medical </content>1.1 Center MG/DL<content styleCode="Italic s"> (0.5-1.3 MG/DL)</content> UNK 9-20 <content Saint styleCode="Bold"> Jermaine BUN </content>16 Medical MG/DL<content Center styleCode="Italic s"> (9-20 MG/DL)</content> Glucose 74-106 Above high <content Saint [Mass/volume] in normal styleCode="Bold"> Giovanny hs Serum or Plasma Glucose Medical </content>112 Center MG/DL H<content styleCode="Italic s"> (74-106 MG/DL)</content> Alanine 7-50 <content [facility] aminotransferase styleCode="Bold"> Giovanny hs [Enzymatic Alanine Medical activity/volume] Aminotransferase Center in Serum or Plasma (ALT) </content>30 IU/L<content styleCode="Italic s"> (7-50 IU/L)</content> Calcium 8.4-10. <content Saint [Mass/volume] in 2 styleCode="Bold"> Giovanny hs Serum or Plasma Calcium Medical </content>9.4 Center MG/DL<content styleCode="Italic s"> (8.4-10.2 MG/DL)</content> UNK > 60 <content Saint styleCode="Bold"> Jermaine EGFR </content>86 Medical GFR<content Center styleCode="Italic s"> (> 60 GFR)</content> Aspartate 17-59 <content [facility] aminotransferase styleCode="Bold"> Giovanny hs [Enzymatic Aspartate Medical activity/volume] Aminotransferase Center in Serum or Plasma (AST) </content>36 IU/L<content styleCode="Italic s"> (17-59 IU/L)</content> Bilirubin.total 0.2-1.3 <content [facility] [Mass/volume] in styleCode="Bold"> Giovanny hs Serum or Plasma Bilirubin Total Medical </content>1.3 Center MG/DL<content styleCode="Italic s"> (0.2-1.3 MG/DL)</content> Albumin 3.5-5.0 <content [facility] [Mass/volume] in styleCode="Bold"> Giovanny hs Serum or Plasma Albumin Medical </content>4.2 Center G/DL<content styleCode="Italic s"> (3.5-5.0 G/DL)</content> Alkaline 38-126 <content [facility] phosphatase styleCode="Bold"> Jermaine [Enzymatic Alkaline Medical activity/volume] Phosphatase (ALP) Cente r in Serum or Plasma </content>78 IU/L<content styleCode="Italic s"> (38-126 IU/L)</content> ID Date Data Source [id number] 11/11/2019 12:00:00 AM EDT [facility] Name Value Range Interpretation Code Description Data Noris rce(s) Supporting Document(s ) [facility]- Imp This lab was ordered by [facility] and reported by [facility]. ID Date Data Source Microbiology.[id number] 02/10/2019 05:45:00 PM EDT [facility] 400 Name Value Range Interpretation Description Data Sup porting Code Source(s) Document(s ) Streptococcus NEGATIVE <item><conten Saint pyogenes Ag t Jermaine [Presence] in styleCode="Dave Medical Unspecified ld">Rapid Center specimen by Strep A Immunoassay </content>
<table><tbo dy><tr><td>Sp ecimen Number:</td>< td>[id number]< /td></tr><tr> <td>Sample Collection Date/Time: </td><td>02/10 5:45 PM</td></tr>< tr><td>Specim en Source:</td>< td>THROAT</td ></tr><tr><td >Rapid Strep A:</td><td>PO SITIVE </td></tr></t body></table> </item> Procedure Social History Code Duration Value Status Description Data Source(s ) Smoking 03/10/2020 Denies Ever completed Denies Ever Smoked [facility]aine 03:07:00 AM EDT Smoked Medical C enter Smoking 03/10/2020 Denies Ever completed Denies Ever Smoked [facility] 01:47:00 AM EDT Smoked Medical C enter Smoking 03/02/2020 Denies Ever completed Denies Ever Smoked [facility] 04:46:00 AM EDT Smoked Medical C enter Smoking 12/27/2019 Denies Ever completed Denies Ever Smoked [facility] 02:06:00 AM EDT Smoked Medical C enter Smoking 12/01/2019 Denies Ever completed Denies Ever Smoked [facility] 04:32:00 AM EDT Smoked Medical C enter Smoking 11/30/2019 Denies Ever completed Denies Ever Smoked [facility] 11:50:00 PM EDT Smoked Medical C enter Smoking 11/30/2019 Denies Ever completed Denies Ever Smoked [facility] 11:41:00 PM EDT Smoked Medical C enter Smoking 11/29/2019 Denies Ever completed Denies Ever Smoked [facility] 12:50:00 AM EDT Smoked Medical C enter Smoking 11/29/2019 Denies Ever completed Denies Ever Smoked [facility] 12:42:00 AM EDT Smoked Medical C enter Smoking 11/12/2019 Denies Ever completed Denies Ever Smoked [facility] 03:24:00 PM EDT Smoked Medical C enter Smoking 11/11/2019 Denies Ever completed Denies Ever Smoked [facility] 09:30:00 PM EDT Smoked Medical C enter Smoking 11/11/2019 Denies Ever completed Denies Ever Smoked [facility]aine 04:58:00 PM EDT Smoked Medical C enter Smoking 11/11/2019 Denies Ever completed Denies Ever Smoked [facility] 12:48:00 PM EDT Smoked Medical C enter Smoking 11/11/2019 Denies Ever completed Denies Ever Smoked [facility] 12:37:00 PM EDT Smoked Medical C enter Smoking 09/30/2019 Denies Ever completed Denies Ever Smoked [facility] 12:44:00 PM EDT Smoked Medical C enter Smoking 09/30/2019 Denies Ever completed Denies Ever Smoked [facility] 12:40:00 PM EDT Smoked Medical C enter Smoking 09/30/2019 Denies Ever completed Denies Ever Smoked [facility]ermaine 12:33:00 PM EDT Smoked Medical C enter Smoking 08/24/2019 Denies Ever completed Denies Ever Smoked [facility] 11:31:00 PM EDT Smoked Medical C enter Smoking 08/24/2019 Denies Ever completed Denies Ever Smoked [facility] 11:27:00 PM EDT Smoked Medical C enter Smoking 08/24/2019 Denies Ever completed Denies Ever Smoked [facility] 11:10:00 PM EDT Smoked Medical C enter Smoking 08/11/2019 Denies Ever completed Denies Ever Smoked [facility]erm[facility] 07:29:00 PM EDT Smoked Medical C enter Smoking 08/11/2019 Denies Ever completed Denies Ever Smoked [facility] Jermiane 07:22:00 PM EDT Smoked Medical C enter Smoking 08/11/2019 Denies Ever completed Denies Ever Smoked [facility]aine 07:15:00 PM EDT Smoked Medical C enter Smoking 06/10/2019 Denies Ever completed Denies Ever Smoked [facility] 01:18:00 AM EST Smoked Medical C enter Smoking 06/10/2019 Denies Ever completed Denies Ever Smoked [facility] 01:04:00 AM EST Smoked Medical C enter Smoking 06/03/2019 Denies Ever completed Denies Ever Smoked [facility] 01:40:00 AM EST Smoked Medical C enter Smoking 06/03/2019 Denies Ever completed Denies Ever Smoked [facility] 01:28:00 AM EST Smoked Medical C enter Smoking 03/13/2019 Denies Ever completed Denies Ever Smoked [facility]ermaine 11:04:00 PM EDT Smoked Medical C enter Smoking 03/13/2019 Denies Ever completed Denies Ever Smoked [facility]ermaine 10:51:00 PM EDT Smoked Medical C enter Smoking 03/13/2019 Denies Ever completed Denies Ever Smoked [facility] Jermaine 10:49:00 PM EDT Smoked Medical C enter Smoking 03/08/2019 Denies Ever completed Denies Ever Smoked [facility] Jermaine 11:36:00 PM EDT Smoked Medical C enter Smoking 02/10/2019 Denies Ever completed Denies Ever Smoked [facility]ermaine 05:00:00 PM EDT Smoked Medical C enter Smoking 02/10/2019 Denies Ever completed Denies Ever Smoked [facility] Jermaine 04:40:00 PM EDT Smoked Medical C enter Vital Signs ID Date Data Source UNK Name Value Range Interpretation Code Description Data Source(s) Body temperature 36.715697 36.164627 [facility] Respiratory rate 18 /min 18 /min [facility] Oxygen saturation 97 % 97 % [facility] blood [facility] by Pulse oximetry Heart rate 78 /min 78 /min [facility] Diastolic blood 76 mm[Hg] 76 mm[Hg] [facility] pressure Medical Center Systolic blood 120 mm[Hg] 120 mm[Hg] [facility] Medical Center Body weight 100.177990 100.189000 kg [facility] Measured kg Medical Center Body temperature 37.491160 37.525135 [facility] Respiratory rate 18 /min 18 /min [facility] Oxygen saturation 97 % 97 % [facility] Arterial blood [facility] by Pulse oximetry Heart rate 82 /min 82 /min [facility] Body height 182.280946 182.725132 cm [facility] Medical Center Diastolic blood 86 mm[Hg] 86 mm[Hg] [facility] Center Systolic blood 118 mm[Hg] 118 mm[Hg] [facility] Body mass index 30.1 kg/m2 30.1 kg/m2 [facility] (BMI) [Ratio] Medical [facility] ter Body temperature 36.188562 36.887541 [facility] Respiratory rate 16 /min 16 /min [facility] Oxygen saturation 99 % 99 % [facility] blood [facility] by Pulse oximetry Heart rate 76 /min 76 /min [facility] Diastolic blood 90 mm[Hg] 90 mm[Hg] [facility] Systolic blood 154 mm[Hg] 154 mm[Hg] [facility] Body temperature 36.618024 36.259067 [facility] Respiratory rate 16 /min 16 /min [facility] Oxygen saturation 96 % 96 % [facility] blood [facility] by Pulse oximetry Heart rate 86 /min 86 /min [facility] Diastolic blood 94 mm[Hg] 94 mm[Hg] [facility] pressure [facility] Systolic blood 178 mm[Hg] 178 mm[Hg] [facility] Body temperature 36.101949 36.986673 [facility] Respiratory rate 18 /min 18 /min [facility] Oxygen saturation 100 % 100 % [facility] blood [facility] by Pulse oximetry Heart rate 71 /min 71 /min [facility] Diastolic blood 84 mm[Hg] 84 mm[Hg] [facility] pressure Medical Center Systolic blood 143 mm[Hg] 143 mm[Hg] [facility] Body temperature 36.816354 36.565303 [facility] Respiratory rate 18 /min 18 /min [facility] Oxygen saturation 99 % 99 % [facility] Arterial blood Medical Center by Pulse oximetry Heart rate 70 /min 70 /min [facility] Diastolic blood 86 mm[Hg] 86 mm[Hg] [facility] Medical [place] Systolic blood 130 mm[Hg] 130 mm[Hg] [facility] Body temperature 36.624567 36.339255 [facility] Respiratory rate 17 /min 17 /min [facility] Oxygen saturation 100 % 100 % [facility] Arterial blood [facility] by Pulse oximetry Heart rate 81 /min 81 /min [facility] Diastolic blood 69 mm[Hg] 69 mm[Hg] [facility] Systolic blood 126 mm[Hg] 126 mm[Hg] [facility] Body temperature 36.707875 36.256313 [facility] Respiratory rate 17 /min 17 /min [facility] Oxygen saturation 97 % 97 % [facility] Arterial blood [facility] by Pulse oximetry Heart rate 77 /min 77 /min [facility] Diastolic blood 91 mm[Hg] 91 mm[Hg] [facility] Medical [place] Systolic blood 134 mm[Hg] 134 mm[Hg] [facility] Body temperature 36.395390 36.188691 [facility] Respiratory rate 20 /min 20 /min [facility] Heart rate 52 /min 52 /min [facility] Diastolic blood 73 mm[Hg] 73 mm[Hg] [facility] Medical Center Systolic blood 119 mm[Hg] 119 mm[Hg] [facility] Medical Center Diastolic blood 60 mm[Hg] 60 mm[Hg] [facility] Medical Center Systolic blood 111 mm[Hg] 111 mm[Hg] [facility] Medical [place] Body temperature 36.064008 36.983966 [facility] Respiratory rate 20 /min 20 /min [facility] Heart rate 42 /min 42 /min [facility] Body height 187.016390 187.326308 cm [facility] Body temperature 36.496672 36.650632 [facility] Respiratory rate 18 /min 18 /min [facility] Heart rate 59 /min 59 /min [facility] Diastolic blood 63 mm[Hg] 63 mm[Hg] [facility] pressure Medical Center Systolic blood 118 mm[Hg] 118 mm[Hg] [facility] Body temperature 36.693316 36.656019 [facility] Respiratory rate 20 /min 20 /min [facility] Heart rate 58 /min 58 /min [facility] Diastolic blood 60 mm[Hg] 60 mm[Hg] [facility] Systolic blood 117 mm[Hg] 117 mm[Hg] [facility] Medical [place] Body weight 103.510845 103.355820 kg [facility] Measured kg Medical Center Body height 187.789864 187.791207 cm [facility] Body mass index 29.27 kg/m2 29.27 kg/m2 [facility] (BMI) [Ratio] Medical [facility] ter Body temperature 36.550232 36.968074 [facility] Respiratory rate 20 /min 20 /min [facility] Heart rate 72 /min 72 /min [facility] Diastolic blood 60 mm[Hg] 60 mm[Hg] [facility] Medical [place] Systolic blood 121 mm[Hg] 121 mm[Hg] [facility] Body temperature 36.916428 36.580210 [facility] Respiratory rate 20 /min 20 /min [facility] Heart rate 74 /min 74 /min [facility] Diastolic blood 64 mm[Hg] 64 mm[Hg] [facility] Center Systolic blood 109 mm[Hg] 109 mm[Hg] [facility] Body temperature 37.490900 37.822157 [facility] Body temperature 39.957903 39.498846 [facility] Respiratory rate 20 /min 20 /min [facility] Heart rate 100 /min 100 /min [facility] Diastolic blood 59 mm[Hg] 59 mm[Hg] [facility] Medical Center Systolic blood 128 mm[Hg] 128 mm[Hg] [facility] Body temperature 37.516386 37.110367 [facility] Respiratory rate 22 /min 22 /min [facility] Heart rate 95 /min 95 /min [facility] Diastolic blood 64 mm[Hg] 64 mm[Hg] [facility] Systolic blood 128 mm[Hg] 128 mm[Hg] [facility] Body weight 103.246226 103.019874 kg [facility] Measured kg Medical Center Oxygen saturation 98 % 98 % [facility] Arterial blood [facility] by Pulse oximetry Body height 187.628721 187.697807 cm [facility] Body mass index 29.27 kg/m2 29.27 kg/m2 [facility] (BMI) [Ratio] Medical [address] Body temperature 36.907802 36.213904 [facility] Respiratory rate 18 /min 18 /min [facility] Heart rate 76 /min 76 /min [facility] Diastolic blood 69 mm[Hg] 69 mm[Hg] [facility] Center Systolic blood 121 mm[Hg] 121 mm[Hg] [facility] Oxygen saturation 98 % 98 % [facility] blood [facility] by Pulse oximetry Respiratory rate 17 /min 17 /min [facility] Heart rate 90 /min 90 /min [facility] Diastolic blood 63 mm[Hg] 63 mm[Hg] [facility] Center Systolic blood 134 mm[Hg] 134 mm[Hg] [facility] Oxygen saturation 100 % 100 % [facility] Arterial blood [facility] by Pulse oximetry Body weight 102.820958 102.375125 kg [facility] Measured kg Medical Center Oxygen saturation 100 % 100 % [facility] Arterial blood [facility] by Pulse oximetry Body weight 102.975954 102.897556 kg [facility] Measured kg Medical Center Body temperature 35.026034 35.994750 [facility] Respiratory rate 18 /min 18 /min [facility] Oxygen saturation 97 % 97 % [facility] blood [facility] by Pulse oximetry Heart rate 68 /min 68 /min [facility] Body height 187.633390 187.169327 cm [facility] Diastolic blood 81 mm[Hg] 81 mm[Hg] [facility] pressure Medical Center Systolic blood 129 mm[Hg] 129 mm[Hg] [facility] Body mass index 29.1 kg/m2 29.1 kg/m2 [facility] (BMI) [Ratio] Medical [facility] Body temperature 36.696812 36.597504 [facility] Respiratory rate 17 /min 17 /min [facility] Oxygen saturation 99 % 99 % [facility] blood [facility] by Pulse oximetry Heart rate 87 /min 87 /min [facility] Diastolic blood 83 mm[Hg] 83 mm[Hg] [facility] pressure [facility] Center Systolic blood 157 mm[Hg] 157 mm[Hg] [facility] Body weight 106.296046 106.872566 kg [facility] Body temperature 36.022900 36.036890 [facility] Respiratory rate 16 /min 16 /min [facility] Oxygen saturation 95 % 95 % [facility] blood [facility] by Pulse oximetry Heart rate 89 /min 89 /min [facility] Body height 187.813911 187.616358 cm [facility] Diastolic blood 73 mm[Hg] 73 mm[Hg] [facility] Systolic blood 145 mm[Hg] 145 mm[Hg] [facility] Body mass index 30.0 kg/m2 30.0 kg/m2 [facility] (BMI) [Ratio] Medical [facility] Body weight 99.737339 kg 99.785727 kg [facility] Body temperature 36.568021 36.654535 [facility] Respiratory rate 18 /min 18 /min [facility] Oxygen saturation 99 % 99 % [facility] by Pulse oximetry Heart rate 87 /min 87 /min [facility] Body height 187.435442 187.614446 cm [facility] Diastolic blood 90 mm[Hg] 90 mm[Hg] [facility] pressure Medical [place] Systolic blood 138 mm[Hg] 138 mm[Hg] [facility] [place] Body mass index 28.2 kg/m2 28.2 kg/m2 [facility] (BMI) [Ratio] Medical [facility] Body temperature 36.729272 36.676334 [facility] Respiratory rate 18 /min 18 /min [facility] Oxygen saturation 96 % 96 % [facility] Arterial blood [facility] [place] by Pulse oximetry Heart rate 72 /min 72 /min [facility] Diastolic blood 76 mm[Hg] 76 mm[Hg] [facility] Systolic blood 152 mm[Hg] 152 mm[Hg] [facility] Body temperature 36.865527 36.551856 [facility] Respiratory rate 18 /min 18 /min [facility] Oxygen saturation 96 % 96 % [facility] Arterial blood [facility] by Pulse oximetry Heart rate 64 /min 64 /min [facility] Diastolic blood 94 mm[Hg] 94 mm[Hg] [facility] Systolic blood 170 mm[Hg] 170 mm[Hg] [facility] Body temperature 36.875397 36.680224 [facility] Respiratory rate 17 /min 17 /min [facility] Oxygen saturation 97 % 97 % [facility] Arterial blood [facility] by Pulse oximetry Heart rate 69 /min 69 /min [facility] Diastolic blood 71 mm[Hg] 71 mm[Hg] [facility] Systolic blood 141 mm[Hg] 141 mm[Hg] [facility] Body temperature 36.153846 36.059690 [facility] Respiratory rate 17 /min 17 /min [facility] Oxygen saturation 100 % 100 % [facility] Arterial blood [facility] by Pulse oximetry Heart rate 61 /min 61 /min [facility] Diastolic blood 71 mm[Hg] 71 mm[Hg] [facility] Systolic blood 135 mm[Hg] 135 mm[Hg] [facility] Body temperature 36.033577 36.872699 [facility] Respiratory rate 17 /min 17 /min [facility] Oxygen saturation 99 % 99 % [facility] Arterial blood [facility] by Pulse oximetry Heart rate 72 /min 72 /min [facility] Diastolic blood 56 mm[Hg] 56 mm[Hg] [facility] pressure [facility] Systolic blood 101 mm[Hg] 101 mm[Hg] [facility] Body weight 102.493930 102.208987 kg [facility] Measured kg Medical Center Body temperature 36.549787 36.499249 [facility] Respiratory rate 18 /min 18 /min [facility] Oxygen saturation 98 % 98 % [facility] Arterial blood [facility] by Pulse oximetry Heart rate 73 /min 73 /min [facility] Body height 187.910407 187.297170 cm [facility] Diastolic blood 93 mm[Hg] 93 mm[Hg] [facility] pressure Medical Center Systolic blood 155 mm[Hg] 155 mm[Hg] [facility] Body mass index 29.0 kg/m2 29.0 kg/m2 [facility] (BMI) [Ratio] Medical [address]
== END 2020-03-10 21:15 | disposition home or self-care (01) ==
LOC: JER 20:06
DX: T14.90XA Injury, unspecified, initial encounter (principal)
CPT/HCPCS: 99283-25

== ENCOUNTER 2020-08-18 16:45 | Emergency (ER) | payer OTHER ==
[2020-08-18 16:55] VITALS: BP 128/82; PULSE 78; TEMP 97.9; BMI 29.4
== END 2020-08-18 17:32 | disposition home or self-care (01) ==
LOC: JERFT 16:45
DX: S61.451A Open bite of right hand, initial encounter (principal); Y04.1XXA Assault by human bite, initial encounter
CPT/HCPCS: 99283-25